=== PATIENT | female | born 1980 | race Caucasian/White ===

== ENCOUNTER 2017-04-06 22:14 | Emergency (ER) | payer BC, MEDICAID, OTHER ==
--- NOTE | 2017-04-06 22:18 | EDM.PDOC ---
ED HPI GENERAL MEDICAL PROBLEM - General Chief Complaint: Upper Extremity Injury/Pain Stated Complaint: right arm injury Time Seen by Provider: 04/06/17 22:15 Source of Information: Reports: Patient History Limitations: Reports: No Limitations - History of Present Illness INITIAL COMMENTS - FREE TEXT/NARRATIVE: Patient comes to ER by private vehicle with complaint of right hand injury. She was rough-housing with daughter and somehow her right hand was compressed and injured. States that there were crunching sounds from hand at that time. It now hurts her to move her fingers and wrist. Pain at times travels down forearm. No report of numbness or tingling. Denies other injuries. - Related Data Allergies Allergy/AdvReac Type Severity Reaction Status Date / Time codeine Allergy Nausea and Verified 04/06/17 22:16 Vomiting hydrocodone Allergy Cannot Verified 04/06/17 22:16 Remember levofloxacin Allergy Other Verified 04/06/17 22:16 prednisone Allergy Anxiety Verified 04/06/17 22:16 varenicline tartrate Allergy Suicial Verified 04/06/17 22:16 [From Chantix] Home Meds: Home Meds ALPRAZolam [Xanax] 1 mg PO Q6H PRN 02/26/16 [History] Sertraline [Zoloft] 200 mg PO BEDTIME 02/26/16 [History] Loratadine [Claritin] 10 mg PO DAILY 02/27/16 [History] ClonazePAM [KlonoPIN] 1 mg PO TID PRN 08/05/16 [History] Cyclobenzaprine [Flexeril] 10 mg PO TID PRN 08/05/16 [History] Ketorolac [Toradol] 10 mg PO Q6H PRN 08/05/16 [History] Multivitamin with Minerals [Gfo-Q-Wgdz-Minerals] 1 each PO DAILY 08/05/16 [ History] Triamcinolone Acetonide [Triamcinolone Acetonide 0.1% Crm] 15 gm TOP BID [History] Phentermine HCl 30 mg PO DAILY 04/06/17 [History] Past Medical History HEENT History: Reports: Allergic Rhinitis, Hard of Hearing, Impaired Vision, Otitis Media, Sinusitis Cardiovascular History: Reports: Syncope Respiratory History: Reports: Asthma, Bronchitis, Recurrent, Pneumonia, Recurrent Gastrointestinal History: Reports: Chronic Diarrhea, Irritable Bowel Syndrome Genitourinary History: Reports: UTI, Recurrent 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 (See Below) Other OB/BYN History: total hysterectomy Neurological History: Reports: Headaches, Chronic, Migraines Psychiatric History: Reports: Anxiety, Depression, Learning Disability, OCD, Panic Attack, PTSD Endocrine/Metabolic History: Reports: Obesity/BMI 30+, Other (See Below) Other Endocrine/Metabolic History: pituitary adenoma, hypogycemia Hematologic History: Reports: Anemia - Infectious Disease History Infectious Disease History: Reports: Influenza - Past Surgical History HEENT Surgical History: Reports: Oral Surgery Social & Family History - Family History Cardiac: Reports: High Cholesterol Respiratory: Reports: Other (See Below) Other Respiratory Family Hisory: emphysema Oncologic: Reports: Lung Other Oncologic Family History: grandma - Tobacco Use Smoking Status *Q: Former Smoker Years of Tobacco use: 16 Packs/Tins Daily: 1 Used Tobacco, but Quit: Yes Month Tobacco Last Used: May 2013 Second Hand Smoke Exposure: No - Alcohol Use Days Per Week of Alcohol Use: 0 - Recreational Drug Use Recreational Drug Use: No Drug Use in Last 12 Months: No - Living Situation & Occupation Living situation: Reports: , Occupation: Employed Review of Systems - Review of Systems Review Of Systems: ROS reveals no pertinent complaints other than HPI. ED EXAM, GENERAL - Physical Exam Exam: See Below Exam Limited By: No Limitations General Appearance: Alert, WD/WN, Mild Distress Eye Exam: Bilateral Eye: EOMI, PERRL Head: Atraumatic, Normocephalic Neck: Supple Respiratory/Chest: No Respiratory Distress Peripheral Pulses: 2+: Radial (R) Extremities: Other (Difficult to assess tendon function in fingers of right hand due to pain limitation in fingers 2-5. 2 and 3 appear to be more uncomfortable. Patient has difficulty extending and flexing fingers. Able to flex and extend right wrist but with some discomfort. No deformity or swelling of hand. Generalized diffuse/non-focal tenderness with palpation of hand/palm/ fingers on right. Hand is NVI. ) Neurological: Alert, Oriented, Normal Cognition, Normal Gait Psychiatric: Normal Affect, Normal Mood Skin Exam: Warm, Dry, Intact, Normal Color Course - Orders/Labs/Meds Orders: Active Orders 24 hr Category Date Time Status Hand Comp Min 3V Rt [CR] Stat Exams 04/06/17 22:16 Ordered Meds: Medications Discontinued Medications Generic Name Dose Route Start Last Admin Trade Name Nicole PRN Reason Stop Dose Admin Ketorolac Tromethamine 10 mg 04/06/17 22:32 04/06/17 22:48 Toradol PO 04/06/17 22:33 Not Given ONETIME ONE - Radiology Interpretation Free Text/Narrative:: No obvious fracture noted - Re-Assessments/Exams Free Text/Narrative Re-Assessment/Exam: 04/06/17 22:34 Suspect diffuse soft tissue damage. Patient has pain on both dorsal and ventral aspect of hand. Has slight increased flexion in DIP joint 2nd finger. Cannot rule out tendon disruption. Cannot test well however due to pain limitation with both flexion and extension. Plan at this time is to have patient wear wrist brace which will also give some support to bases of fingers. Toradol given. (patient allergic to codeine and hydrocodone). She is to follow up at Ortho walk-in clinic at either [facility] or [place] tomorrow or Thursday for recheck exam. She was made aware that there is an ideal time limit for repair if she actually experienced tendon disruption. She is agreeable with this plan. Departure - Departure Time of Disposition: 22:40 Disposition: Home, Self-Care 01 Condition: Good Clinical Impression: Injury of right hand Qualifiers: Encounter type: initial encounter Qualified Code(s): S69.91XA - Unspecified injury of right wrist, hand and finger(s), initial encounter - Discharge Information Referrals: Didier Gutierrez PA-C [Primary Care Provider] - Forms: ED Department Discharge Additional Instructions: Wear brace for protection and comfort. Follow up tomorrow or Thursday at Ortho walk-in clinic in [place]. You can choose either [place] or [facility]. They can re-examine you for tendon and ligament injury. OK to ice and elevate for comfort. Tylenol or Toradol or Ibuprofen or Aleve for pain as needed. - My Orders Last 24 Hours: My Active Orders 04/06/17 22:16 Hand Comp Min 3V Rt [CR] Stat - Assessment/Plan Last 24 Hours: My Active Orders 04/06/17 22:16 Hand Comp Min 3V Rt [CR] Stat
[2017-04-06] MEDS ORDERED: Ketorolac 10 MG Tab PO ONE (22:32)
[2017-04-07 00:09] VITALS: BP 115/83
== END 2017-04-06 23:10 | disposition home or self-care (01) ==
LOC: LL.ED 22:14
DX: S69.91XA Unspecified injury of right wrist, hand and finger(s), initial encounter (principal); J45.909 Unspecified asthma, uncomplicated; G43.909 Migraine, unspecified, not intractable, without status migrainosus; F41.9 Anxiety disorder, unspecified; F32.9 Major depressive disorder, single episode, unspecified; F43.10 Post-traumatic stress disorder, unspecified; E66.9 Obesity, unspecified; D64.9 Anemia, unspecified; Z88.8 Allergy status to other drugs, medicaments and biological substances; Z87.01 Personal history of pneumonia (recurrent); Z87.440 Personal history of urinary (tract) infections; Z90.710 Acquired absence of both cervix and uterus; Z88.5 Allergy status to narcotic agent; Z87.891 Personal history of nicotine dependence; Z68.38 Body mass index [BMI] 38.0-38.9, adult; X58.XXXA Exposure to other specified factors, initial encounter
CPT/HCPCS: 73130-RT; 99283

== ENCOUNTER 2018-03-03 03:45 | Emergency (ER) | payer BC, MEDICAID ==
[~2018-03-03 03:45] MED LIST: EPINEPHrine 0.3 MG/0.3 ML Pen Autoinjector IM ONE; Hydrocortisone Sodium Succinate 100 MG/2 ML SDV IVPUSH ONE; diphenhydrAMINE 50 MG/ML SDV IVPUSH ONE
[2018-03-03] MEDS ORDERED: methylPREDNISolone Sodium Succinate 125 MG/2 ML SDV IVPUSH ONE (03:48)
--- NOTE | 2018-03-03 03:55 | EDM.PDOC ---
ED HPI GENERAL MEDICAL PROBLEM - General Chief Complaint: Allergic Reaction Stated Complaint: Allergic Reaction Time Seen by Provider: 03/03/18 03:49 Source of Information: Reports: Patient History Limitations: Reports: No Limitations - History of Present Illness INITIAL COMMENTS - FREE TEXT/NARRATIVE: Patient comes in with coughing and reported allergic reaction 30" after getting exposed to pickle/ketchup, both of which she is allergic to. No history of intubation. Has not required going to an ER before for allergy. Couldn't find her Benadryl which is what she usually takes when she has a reaction. Lips feel a bit puffy. Sats on room air noted to be 100%. - Related Data Allergies Allergy/AdvReac Type Severity Reaction Status Date / Time codeine Allergy Nausea and Verified 03/03/18 03:58 Vomiting hydrocodone Allergy Cannot Verified 03/03/18 03:58 Remember levofloxacin Allergy Other Verified 03/03/18 03:58 prednisone Allergy Anxiety Verified 03/03/18 03:58 varenicline tartrate Allergy Suicial Verified 03/03/18 03:58 [From Chantix] Home Meds: Home Meds ALPRAZolam [Xanax] 1 mg PO Q6H PRN 02/26/16 [History] Sertraline [Zoloft] 200 mg PO BEDTIME 02/26/16 [History] Loratadine [Claritin] 10 mg PO DAILY 02/27/16 [History] ClonazePAM [KlonoPIN] 1 mg PO TID PRN 08/05/16 [History] Ketorolac [Toradol] 10 mg PO Q6H PRN 08/05/16 [History] Phentermine HCl 30 mg PO DAILY 04/06/17 [History] DULoxetine HCl [Duloxetine HCl] 1 cap PO DAILY 03/03/18 [History] metFORMIN HCl [Metformin HCl ER] 1 tab PO DAILY 03/03/18 [History] Past Medical History HEENT History: Reports: Allergic Rhinitis, Hard of Hearing, Impaired Vision, Otitis Media, Sinusitis Cardiovascular History: Reports: Syncope Respiratory History: Reports: Asthma, Bronchitis, Recurrent, Pneumonia, Recurrent Gastrointestinal History: Reports: Chronic Diarrhea, Irritable Bowel Syndrome Genitourinary History: Reports: UTI, Recurrent 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 History: total hysterectomy Neurological History: Reports: Headaches, Chronic, Migraines Psychiatric History: Reports: Anxiety, Depression, Learning Disability, OCD, Panic Attack, PTSD Endocrine/Metabolic History: Reports: Obesity/BMI 30+, Other (See Below) Other Endocrine/Metabolic History: pituitary adenoma, hypogycemia Hematologic History: Reports: Anemia - Infectious Disease History Infectious Disease History: Reports: Influenza - Past Surgical History HEENT Surgical History: Reports: Oral Surgery Social & Family History - Family History Cardiac: Reports: High Cholesterol Respiratory: Reports: Other (See Below) Other Respiratory Family Hisory: emphysema Oncologic: Reports: Lung Other Oncologic Family History: grandma - Living Situation & Occupation Living situation: Reports: , Occupation: Employed ED ROS ALLERGIC REACTION - Review of Systems Review Of Systems: See Below Constitutional: Reports: No Symptoms HEENT: Reports: Other (lips feel swollen). Denies: Eye Discharge, Rhinitis, Sinus Problem, Throat Pain, Throat Swelling Respiratory: Reports: Cough. Denies: Shortness of Breath, Wheezing, Sputum, Hemoptysis Cardiovascular: Reports: No Symptoms. Denies: Chest Pain GI/Abdominal: Reports: No Symptoms : Reports: No Symptoms Musculoskeletal: Reports: No Symptoms Skin: Reports: No Symptoms Neurological: Reports: No Symptoms Psychiatric: Reports: No Symptoms Hematologic/Lymphatic: Reports: No Symptoms Immunologic: Reports: Food Allergy ED EXAM GENERAL NO PERIP PULSE - Physical Exam Exam: See Below Exam Limited By: No Limitations General Appearance: Alert, WD/WN, Obese, Other (constant coughing when first arrived to ER. ) Eye Exam: Bilateral Eye: EOMI, PERRL Ears: Normal External Exam, Normal Canal, Hearing Grossly Normal, Normal TMs Nose: Normal Inspection, Normal Mucosa, No Blood Throat/Mouth: Normal Inspection, Normal Lips, Normal Oropharynx, Normal Voice, No Airway Compromise Head: Atraumatic, Normocephalic Neck: Normal Inspection, Supple, Non-Tender, Full Range of Motion Respiratory/Chest: No Respiratory Distress, Lungs Clear, Normal Breath Sounds, No Accessory Muscle Use Cardiovascular: Regular Rate, Rhythm, No Murmur GI/Abdominal: Soft (Female) Exam: Deferred Rectal (Female) Exam: Deferred Back Exam: Normal Inspection Extremities: Normal Capillary Refill Neurological: Alert, Oriented, Normal Cognition, Normal Gait, No Motor/Sensory Deficits Psychiatric: Normal Affect, Normal Mood Skin Exam: Warm, Dry, Intact, Normal Color Course - Vital Signs Last Recorded V/S: Last Vital Signs Temp 36.7 C 03/03/18 03:45 Pulse 76 03/03/18 04:56 Resp 16 03/03/18 04:15 BP 113/76 03/03/18 04:56 Pulse Ox 98 03/03/18 04:56 - Orders/Labs/Meds Meds: Medications Discontinued Medications Generic Name Dose Route Start Last Admin Trade Name Nicole PRN Reason Stop Dose Admin Diphenhydramine HCl 50 mg 03/03/18 03:45 03/03/18 03:50 Benadryl IVPUSH 03/03/18 03:46 50 mg ONETIME ONE Administration Epinephrine HCl 0.3 mg 03/03/18 03:45 03/03/18 03:45 Epipen IM 03/03/18 03:46 1 injection ONETIME ONE Administration Methylprednisolone Sodium Succinate 125 mg 03/03/18 03:48 03/03/18 03:48 Solu-Medrol IVPUSH 03/03/18 03:49 125 mg ONETIME ONE Administration - Re-Assessments/Exams Free Text/Narrative Re-Assessment/Exam: 03/03/18 03:59 Patient given EpiPen by nurse shortly after arrival to ER. Symptoms quickly improved. This was followed by IV Solumedrol and Benadryl. Patient is much more comfortable at this time. VSS. Sats 100%. Coughing resolved. Plan is to observe until 5am. If she continues to do well she will be discharged home. Free Text/Narrative Re-Assessment/Exam: 03/03/18 08:39 Patient remained improved. Discharged at 5am. Precautions reviewed, to follow up as needed if symptoms return. Recommend regular Benadryl every6 hours (1-2 tabs) for next 24 hours. Departure - Departure Time of Disposition: 05:00 Disposition: Home, Self-Care 01 Condition: Good Clinical Impression: Allergic reaction to food Qualifiers: Encounter type: initial encounter Qualified Code(s): T78.1XXA - Other adverse food reactions, not elsewhere classified, initial encounter - Discharge Information Instructions: Diphenhydramine injection, Allergies, Adult, [id number], Epinephrine injection (Auto-injector), Food Allergy, [id number], Methylprednisolone Solution for Injection Referrals: Didier Gutierrez PA-C [Primary Care Provider] - Forms: ED Department Discharge Additional Instructions: Observe for changes or any recurrence of symptoms. Recommend regular Benadryl every 6 hours for 24 hours then return to as needed use. Follow up as needed for any worsening/changes.
[2018-03-03 04:57] VITALS: BP 113/76
== END 2018-03-03 05:10 | disposition home or self-care (01) ==
LOC: LL.ED 03:45
DX: T78.1XXA Other adverse food reactions, not elsewhere classified, initial encounter (principal); R05 Cough; E66.9 Obesity, unspecified; Z88.5 Allergy status to narcotic agent; Z88.8 Allergy status to other drugs, medicaments and biological substances; Z79.84 Long term (current) use of oral hypoglycemic drugs
CPT/HCPCS: 96372; 96374; 96375; 99285; A9270; J1200; J2930

== ENCOUNTER 2018-03-03 19:11 | Emergency (ER) | payer BC ==
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
[2018-03-03] MEDS ORDERED: Famotidine 20 MG/2 ML SDV IVPUSH ONE (19:18)
[2018-03-03] MEDS ORDERED: methylPREDNISolone Sodium Succinate 125 MG/2 ML SDV IVPUSH ONE (19:18)
[2018-03-03] MEDS ORDERED: Albuterol/Ipratropium 3.0-0.5 MG/3 ML Neb Soln NEB ONE (19:19)
[2018-03-03] MEDS ORDERED: Budesonide 0.5 MG/2 ML Neb Susp NEB ONE (19:19)
[2018-03-03] MEDS: Sodium Chloride 0.9% 10 ML Syringe FLUSH PRN ×2 (19:33→19:35)
[2018-03-03] MEDS ORDERED: Amoxicillin/Clavulanate K 875-125 MG Tab PO ONE (20:18)
[2018-03-03] MEDS ORDERED: Dextromethorphan/guaiFENesin 600-30 MG Tab.ER PO ONE (20:19)
[2018-03-03 20:28] VITALS: BP 117/76
== END 2018-03-03 20:50 | disposition home or self-care (01) ==
LOC: LL.ED 19:11
DX: T78.1XXA Other adverse food reactions, not elsewhere classified, initial encounter (principal); R05 Cough; I10 Essential (primary) hypertension; F17.210 Nicotine dependence, cigarettes, uncomplicated; J45.909 Unspecified asthma, uncomplicated; F41.8 Other specified anxiety disorders; Z71.6 Tobacco abuse counseling; E66.9 Obesity, unspecified; M15.0 Primary generalized (osteo)arthritis; D35.2 Benign neoplasm of pituitary gland; Z88.5 Allergy status to narcotic agent; Z88.8 Allergy status to other drugs, medicaments and biological substances; Z79.899 Other long term (current) drug therapy
CPT/HCPCS: 36415; 71046; 85025; 94640; 96374; 96375; 99284; A9270; J2930; J7050; S0028